=== PATIENT | male | born 1985 | race Caucasian/White ===

== ENCOUNTER → 2020-06-25 | Day surgery (SDC) | payer OTHER ==
[~2020-06-25] MED LIST: BUPIVACAINE HCL/PF 0.25% (2.5MG/ML) 10 ML VIAL ONE; LACTATED RINGERS SOLUTION 1,000 ML IV SCH; ONDANSETRON 4 MG/2 ML VIAL IVPUSH PRN; PROPOFOL 20 ML ONE
--- NOTE | 2020-06-25 07:46 | OP ---
Operative Note - Note: Operative Date: 06/25/20 Pre-Operative Diagnosis: Left knee medial meniscus tear Operation: Left knee arthroscopy with partial medial menicectomy Post-Operative Diagnosis: Same as Pre-op Surgeon: Musa Craft Insurance Risk Manager: Allison Phillips Operative Report Dictated: Yes
--- OUTSIDE RECORDS SUMMARY | 2020-06-25 09:11 | XMS ---
:1985 Author Organization [facility] Support Name Relationship Address Phone REL CONSTRUCTION Unavailable [address] [place] [address] JEET HADLEY BROTHER [address] [place] [address] Re-disclosure Warning The records that you are about to access may contain information from federally- assisted alcohol or drug abuse programs. If such information is present, then the following federally mandated warning applies: This information has been disclosed to you from records protected by federal confidentiality rules (42 CFR part 2). The federal rules prohibit you from making any further disclosure of this information unless further disclosure is expressly permitted by the written consent of the person to whom it pertains or as otherwise permitted by 42 CFR part 2. A general authorization for the release of medical or other information is NOT sufficient for this purpose. The Federal rules restrict any use of the information to criminally investigate or prosecute any alcohol or drug abuse patient.The records that you are about to access may contain highly sensitive health information, the redisclosure of which is protected by Article 27-F of the [facility] Public Health law. If you continue you may haveaccess to information: Regarding HIV / AIDS; Provided by facilities licensed or operated by the [facility] Office of Mental Health; or Provided by the [facility] Office for People With Developmental Disabilities. If such information is present, then the following [facility] mandated warning applies: This information has been disclosed to you from confidential records which are protected by state law. State law prohibits you from making any further disclosure of this information without the specific written consent of the person to whom it pertains, or as otherwise permitted by law. Any unauthorized further disclosure in violation of state law may result in a fine or prison sentence or both. A general authorization for the release of medical or other information is NOT sufficient authorization for further disclosure. Insurance Providers Payer name Policy type Policy ID Covered Covered constitution party's Policy P sukumar / Coverage constitution party ID relationship to [employer] Inf ormation type moyer SELECTIVE [id number] INS
--- NOTE | 2020-06-25 12:51 | OP ---
DATE OF OPERATION: 06/25/2020 PREOPERATIVE DIAGNOSIS: Left knee medial meniscal tear. POSTOPERATIVE DIAGNOSIS: Left knee medial meniscal tear. PROCEDURE: Left knee arthroscopy with partial medial meniscectomy. SURGEON: Musa Craft MD DATA SOLUTIONS ARCHITECT: Allison Phillips, physician legal administrative assistant, whose skillful assistance was necessary for the safe and timely performance of this procedure. Ms. Phillips was able to provide limb positioning, retraction, assist in driving the camera, and assist in the excision of the meniscus. ANESTHESIA: General. POSTOPERATIVE CONDITION: Stable. COMPLICATIONS: None. INDICATIONS: This is a pleasant gentleman who was injured at work who suffered a tear to his medial meniscus. Treatment options were discussed including nonoperative versus operative management. Operative risks were reviewed in detail including bleeding, infection, neurovascular injury, need for further surgery, postoperative pain and stiffness, progression of arthritis. We discussed medical risks such as heart attack, stroke, DVT, PE and . I addressed the use of perioperative antibiotic and DVT prophylaxis. I addressed all the questions and concerns. He voiced understanding and elected to proceed. It should be noted the [employer] phone was used for translation. PROCEDURE: The patient was brought to the operating room where general anesthesia was administered. The left lower extremity was then prepped and draped in the usual sterile fashion. A preoperative dose of antibiotics was given and the usual timeout procedure was performed. The left knee was then marked out. A lateral portal was established with an 11-blade. The arthroscope was then passed into the knee. Examination of the patellofemoral joint demonstrated some mild superficial fraying on both the patellar and trochlear surfaces. Passing the scope into the notch demonstrated intact ACL and PCL. The arthroscope was now passed into the medial compartment. A medial portal was established under spinal needle localization. A complex tear was now noted involving the posterior horn and body of the medial meniscus. Utilizing a shaver, this was debrided down to a stable base. A meniscal biter was used as well. The arthroscope was now passed back across the notch into the lateral compartment. The lateral compartment was examined, demonstrated intact articular surface and intact meniscus. These were probed and found to be stable. The arthroscope was now passed into the lateral portal. Some additional smoothing was done on the more anterior portion of the medial meniscal tear with a shaver. At this point, the excess fluid was withdrawn from the knee. The portals were sutured using 3-0 nylon. Sterile dressings were placed. The patient was extubated and transferred to recovery room in stable condition. Nasir GEORGE/[id number]
== END | disposition home or self-care (01) ==
LOC: FASU 09:06
PROVIDERS: ATTEND Orthopaedic Surgery Sports Medicine
PROC: 0SBD4ZZ Excision of Left Knee Joint, Percutaneous Endoscopic Approach (ICD-10-PCS; principal; 2020-06-25 11:02)
DX: S83.242A Other tear of medial meniscus, current injury, left knee, initial encounter (principal); X58.XXXA Exposure to other specified factors, initial encounter; Y93.9 Activity, unspecified; Y92.9 Unspecified place or not applicable
CPT/HCPCS: 94760